=== PATIENT | male | born 1985 | race Caucasian/White ===

== ENCOUNTER 2018-02-06 04:32 | Emergency (ER) | payer SELFPAY ==
[~2018-02-06] VITALS: Ht 180.3 cm; Wt 95.3 kg
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
--- NOTE | 2018-02-06 04:50 | NUR ---
Dr. Hameed at bedside for MSE.
--- NOTE | 2018-02-06 05:17 | NUR ---
Patient discharged to home in stable conditon. Written and verbal after care instructions given. Patient verbalizes understanding of instructions. Patient ambulated out of ER with steady gait, no acute signs of distress, VSS, all belongings taken.
[2018-02-06 05:26] VITALS: BP 128/86
== END 2018-02-06 05:20 | disposition home or self-care (01) ==
LOC: ER 04:36
DX: S00.83XA Contusion of other part of head, initial encounter (principal); Z88.2 Allergy status to sulfonamides; V48.6XXA Car passenger injured in noncollision transport accident in traffic accident, initial encounter; Y93.89 Activity, other specified; Y92.410 Unspecified street and highway as the place of occurrence of the external cause; Y99.8 Other external cause status
CPT/HCPCS: A4663